=== PATIENT | female | born 1960 | race Caucasian/White ===

== ENCOUNTER 2020-03-22 06:12 | Emergency (ER) | payer SELFPAY ==
[2020-03-22] MEDS ORDERED: Proparacaine 0.5% Opth 15 ML BOT ONE (06:26)
[2020-03-22] MEDS ORDERED: Lidocaine 1% (PF) 30 ML VIAL ONE (06:26)
[2020-03-22] MEDS ORDERED: Budesonide 0.5 MG/2 ML NEB ONE (06:27)
[2020-03-22] MEDS ORDERED: Bupivacaine 0.25% 10 ML VIAL ONE (06:28)
[2020-03-22] MEDS ORDERED: Morphine 10 MG/ML VIAL ONE (06:57)
--- NOTE | 2020-03-22 07:40 | RAD ---
RIGHT WRIST 3 VIEWS: HISTORY: Fall, right wrist pain. FINDINGS/IMPRESSION: There is a mildly angulated fracture involving the distal radial metaphysis. POS: MAZINA
--- NOTE | 2020-03-22 08:56 | RAD ---
RIGHT WRIST 3 VIEWS: HISTORY: Post reduction. COMPARISON: Earlier exam of the same day. FINDINGS: Arthritic changes of the wrist are again identified. Distal radial fracture still shows moderate dinesh hailey angulation on this exam. No associated ulnar fracture is appreciated. IMPRESSION: No significant change from the angulation of the distal radial fracture. POS: C
[2020-03-22] MEDS ORDERED: Ketamine 50 MG/ML (10ML VIAL) ONE (09:15)
[2020-03-22] MEDS ORDERED: Acetaminophen/Codeine 30-300mg Tablet ONE (11:21)
[2020-03-22] MEDS ORDERED: Ibuprofen 200 MG TAB ONE (11:21)
--- NOTE | 2020-03-22 13:32 | RAD ---
RIGHT WRIST TWO VIEWS: 03/22/20 INDICATION: History of right wrist fracture reduction. COMPARISON: Prior exam performed earlier at 8:06 a.m. FINDINGS: There is improved alignment in the dorsally angulated distal radial fracture with intra-articular ext ension. Mild residual dorsal angulation and radial impaction remains. 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 There is healed deformity involving the thumb metacarpal base. IMPRESSION: Interval closed reduction with improved near anatomic alignment involving the intra-articular distal radial fracture. POS: BH
== END 2020-03-22 11:27 | disposition home or self-care (01) ==
LOC: ERS 06:12
DX: S52.571A Other intraarticular fracture of lower end of right radius, initial encounter for closed fracture (principal); J45.909 Unspecified asthma, uncomplicated; I10 Essential (primary) hypertension; F32.9 Major depressive disorder, single episode, unspecified; M19.90 Unspecified osteoarthritis, unspecified site; Z79.899 Other long term (current) drug therapy; Z86.73 Personal history of transient ischemic attack (TIA), and cerebral infarction without residual deficits
CPT/HCPCS: 25605; 96372; 99152; 99153; 99283; J2001; J2270; J7626; S0020

== ENCOUNTER 2020-03-26 06:10 | Outpatient (CLI) | payer OTHER, SELFPAY ==
[2020-03-26 16:46] LABS: #Eosinphils 0.6 thou/uL (0.0-0.7); #Lymphocytes 2.6 thou/uL (1.20-3.40); #Monocytes 0.5 thou/uL (0.11-0.59); #Neutrophils 5.5 thou/uL (1.40-6.50); %Basophils 0.5 % (0.0-1.0); %Lymphocytes 28.1 % (21.0-51.0); %Monocytes 5.3 % (0.0-10.0); %Neutrophils 60.1 % (42.0-75.0); Hemoglobin 12.2 g/dL (12.0-16.0); Mean Corpuscular HGB CONC 31.8 g/dL (32.0-36.0); Mean Corpuscular Volume 94.2 fL (78.0-98.0); Mean Platelet Volume 8.7 fL (7.4-10.4); Platelet Count 272 thou/uL (130-400); RBC Distribution Width 12.6 % (11.5-14.5); Red Blood Cell (RBC) Count 4.07 mill/uL (4.20-5.40); White Blood Cell (WBC) Count 9.2 thou/uL (4.8-10.8)
[2020-03-26 16:48] LABS: INR-International Normal Ratio 0.9; Prothrombin Time 11.9 sec (12.0-14.7)
[2020-03-27 11:21] LABS: SARS-CoV-2 MS2 Positive; SARS-CoV-2 N Gene Negative; SARS-CoV-2 S Gene Negative; SARS-CoV-2 orf1ab Negative
--- NOTE | 2020-03-27 22:10 | EKG ---
Test Reason : Blood Pressure : / mmHG Vent. Rate : 081 BPM Atrial Rate : 081 BPM P-R Int : 170 ms QRS Dur : 086 ms QT Int : 372 ms P-R-T Axes : 063 068 067 degrees QTc Int : 432 ms Normal sinus rhythm Normal ECG No previous ECGs available Confirmed by Pancho GLOVER ([id number]) on 03/27/2020 10:10:19 PM Referred By: SOCO Confirmed By:Pancho GLOVER
== END 2020-03-26 06:11 | disposition home or self-care (01) ==
LOC: LABBT 06:10
PROVIDERS: ATTEND Orthopaedic Surgery
DX: Z01.818 Encounter for other preprocedural examination (principal); Z11.59 Encounter for screening for other viral diseases; S52.551A Other extraarticular fracture of lower end of right radius, initial encounter for closed fracture
CPT/HCPCS: 85025; 85610; 87635; 93005; 93010; U0003

== ENCOUNTER 2020-03-28 10:48 | Day surgery (SDC) | payer OTHER, SELFPAY ==
[2020-03-26 16:15] VITALS: BMI 31.4
[2020-03-28] MEDS ORDERED: Clindamycin/D5W 600 mg/50 ml Premix Bag ONE (11:46)
[2020-03-28] MEDS ORDERED: Midazolam HCl 2 mg/2 ml Vial ONE ×2 (12:34→14:20)
[2020-03-28] MEDS ORDERED: Fentanyl 100 MCG/2 ML VIAL ONE (12:34)
[2020-03-28] MEDS ORDERED: Bupivacaine HCl 0.5%/Epinephrine 1:200,000/PF 30 ml Vial ONE (13:37)
[2020-03-28] MEDS ORDERED: Dexamethasone 20 MG/5 ML VIAL ONE (13:37)
[2020-03-28] MEDS ORDERED: Lidocaine 1% PF 5 ML VIAL ONE (13:37)
[2020-03-28] MEDS ORDERED: Ondansetron PF 4 MG/2 ML Vial ONE (13:37)
[2020-03-28] MEDS ORDERED: PHENYLEPHRINE-NS 100 MCG/ML 10 ML SYRINGE ONE (13:37)
[2020-03-28] MEDS ORDERED: PROPOFOL 200 MG/20 ML VIAL ONE (13:37)
[2020-03-28] MEDS ORDERED: Ketorolac Tromethamine 30 MG/ML VIAL ONE (13:37)
--- NOTE | 2020-03-28 15:35 | RAD ---
Exam: XR Wrist 3 Lt View STANDARD HISTORY: ORIF right wrist COMPARISON: 03/22/2020 FINDINGS: A volar plate and screws now transfix the previously noted comminuted and impacted distal right radia l metaphyseal fracture. There is improvement in alignment of fracture fragments. No hardware complication is seen. Correlation with intraoperative findings is recommended. IMPRESSION: Internal fixation of the intra-articular fracture distal left radius.
--- NOTE | 2020-03-29 09:33 | OP ---
DATE OF PROCEDURE: 03/28/2020 PREOPERATIVE DIAGNOSIS: Right distal radius fracture, extra-articular with metaphyseal comminution. POSTOPERATIVE DIAGNOSIS: Right distal radius fracture, extra-articular with metaphyseal comminution. PROCEDURES PERFORMED: 1. Right open reduction and internal fixation of distal radius fracture. 2. Short-arm splint. BIOPROCESS DEVELOPMENT ENGINEER: Mainor Sykes PA-C ANESTHESIOLOGIST: Dr. Ledesma. ANESTHESIA: The patient received interscalene with an LMA. ESTIMATED BLOOD LOSS: Less than 30 mL. TOURNIQUET TIME: 54 minutes at 250 mmHg. ANTIBIOTICS: Ancef 2 g. IMPLANTS: 6-hole variable angle plate with four 2.4 locking screws and three 2.7 nonlocking screws. COMPLICATIONS: plunge of the drill. INDICATIONS FOR PROCEDURE: Ms. Chand is a 60-year-old female with ground level fall, sustained a dorsal angulation of her wrist with significant comminution. The patient denies osteopenia. I discussed with the patient that given the dorsal angulation, I would be concerned about where the wrist would ultimately come to rest. I discussed risks and benefits of surgery to include pain, scar, bleeding , infection, damage to vital structures, decreased range of motion and strength, continued pain despite surgical intervention, stiffness, loss of life or limb. The patient understood the risks and benefits of the procedure and elected to proceed. DESCRIPTION OF PROCEDURE: Time-out was performed designating the patient's right upper extremity as the operative site based on site, consents, and marking. After time-out, the patient's right upper extremity was prepped and draped in sterile fashion. Tourniquet was brought up and left up for 54 minutes. A volar incision was made over the patient's FCR down through skin. FCR was retracted. The fascia was opened. We took the FPL and the palmaris brevis, which was elevated off. There was some comminution, but large distal segment with dorsal comminution, able to reduce the fracture. Under fluoroscopic guidance, we placed our plate. The drill slipped and the plate slipped and so it was medialized. We had to replace the plate in a more appropriate position proximal distal length in line with the ulna as well as based on radial styloid. I liked the overall position, drilled and placed our screw just slightly proximally, pinned the wrist to help it hold reduction as we liked. We then placed the two center screws. We drilled and measured 20. On radiographs screws sticking out a little bit so we had to actually downsize to 18. The patient's styloid was drilled and placed a 14, and then the patient's portion a 16 was placed and ensured that they were out of the dorsal surface. There was a plunge dorsally, it caught a little bit of the posterior towel. Therefore, we made a small stab incision and came down on top of that drill hole to ensure that there was no debris, washed it and there was not any particular debris noted. We moved back to the wrist, closed our final two 12 mm screws proximally with two sets of screws proximally into the plate bicortical. We took final radiographs showing an improved alignment, volar tilt, ulnar deviation. No screws into the joint. No obvious screws backing out the cortex. We had downsized for two of them. Being happy with the overall alignment and reduction, we washed, we closed the skin with 2-0 and 3-0 nylon, placed soft tissue dressings. The tourniquet was left down at 54 minutes. The patient was placed in a volar splint. The patient will follow up with me in 2 weeks to be transitioned to a Velcro wrist splint. Job ID: [id number] [facility]
== END 2020-03-28 18:00 | disposition home or self-care (01) ==
LOC: SDC 10:48
PROVIDERS: ATTEND Orthopaedic Surgery
PROC: 0PSH04Z Reposition Right Radius with Internal Fixation Device, Open Approach (ICD-10-PCS; principal; 2020-03-28)
PROC: 3E0T3BZ Introduction of Anesthetic Agent into Peripheral Nerves and Plexi, Percutaneous Approach (ICD-10-PCS; principal; 2020-03-28)
DX: S52.551A Other extraarticular fracture of lower end of right radius, initial encounter for closed fracture (principal); G89.18 Other acute postprocedural pain; I10 Essential (primary) hypertension; F32.9 Major depressive disorder, single episode, unspecified; M19.90 Unspecified osteoarthritis, unspecified site; Z79.899 Other long term (current) drug therapy; Z88.0 Allergy status to penicillin; Z91.040 Latex allergy status; W01.0XXA Fall on same level from slipping, tripping and stumbling without subsequent striking against object, initial encounter
CPT/HCPCS: 76000; C1713; J0670; J1100; J1885; J2001; J2250; J2405; J2704; J3010; J3490

== ENCOUNTER 2020-12-23 21:47 | Inpatient (IN) | payer MEDICARE ==
[2020-12-23] MEDS ORDERED: Albuterol Sulfate 1.25 MG/3 ML NEB ONE (21:54)
[2020-12-23] MEDS ORDERED: Albuterol Sulfate 2.5 mg/0.5 ml Neb ONE ×2 (21:55)
--- NOTE | 2020-12-23 22:28 | RAD ---
Chest one view HISTORY: Dyspnea. FINDINGS: Cardiac silhouette is magnified by projection. Pulmonary vasculature is unremarkable. Mediastinum is midline allowing for prominent S-shaped curvature of the thoracic spine. No confluent airspace consolidation or evidence of pneumothorax. Extrinsic artifact projects over the right apex. IMPRESSION : No acute abnormalities are demonstrated.
[2020-12-23] MEDS ORDERED: cefTRIAXone\\ROCEPHIN 1 GM VIAL ONE (22:30)
[2020-12-23 22:34] LABS: Analyzer IN Cardio ER; Base Excess (BEa) -7.4 mEq/L (-2.0 to +3.0); Carboxyhemoglobin (COHb) 0.3 gm% (0.0-3.0); Hemoglobin (Hb) 13.6 g/dL (12.0-16.0); O2 Tension (PaO2), arterial 205.2 mmHg (> 80.0); Potassium - ABG Lab 3.53 mmol/L (3.70-5.30); pH, Arterial 7.42 (7.35-7.45)
[2020-12-23 22:41] LABS: CO2 Tension 23.4 mmHg (35.0-45.0)
[2020-12-23 22:42] LABS: Puncture Site LRA
[2020-12-23] MEDS ORDERED: Fentanyl 100 MCG/2 ML VIAL ONE (22:52)
[2020-12-23 22:57] LABS: Band 3 % (5-11); Hemoglobin 13.1 g/dL (12.0-16.0); Lymphocytes 16 % (21-51); MDiff Complete? YES; Mean Corpuscular HGB CONC 32.3 g/dL (32.0-36.0); Mean Corpuscular Hemoglobin 29.4 pg (27.0-31.0); Mean Corpuscular Volume 91.1 fL (78.0-98.0); Mean Platelet Volume 7.8 fL (7.4-10.4); Monocytes 4 % (0-10); Neutrophil 77 % (42-75); Platelet Count 388 thou/uL (130-400); RBC Distribution Width 12.3 % (11.5-14.5); Red Blood Cell (RBC) Count 4.46 mill/uL (4.20-5.40); White Blood Cell (WBC) Count 21.1 thou/uL (4.8-10.8)
[2020-12-23 23:00] LABS: ALT (SGPT) 14 U/L (8-55); AST (SGOT) 17 U/L (5-34); Alkaline Phosphatase 90 U/L (40-110); Anion Gap 19 mmol/L (10-20); BUN (Urea Nitrogen) 22 mg/dL (9.8-20.1); Bilirubin, Total 0.3 mg/dL (0.2-1.2); Calc. Creatinine Clearance 0 mL/min (70-130); Calcium 8.5 mg/dL (7.8-10.44); Carbon Dioxide 13 mmol/L (23-31); Chloride 114 mmol/L (98-107); Glucose 238 mg/dL (80-115); Potassium 3.9 mmol/L (3.5-5.1); Sodium 142 mmol/L (136-145)
[2020-12-23] MEDS ORDERED: Lorazepam 2 MG/ML VIAL ONE (23:04)
[2020-12-23] MEDS ORDERED: Azithromycin 500 MG VIAL ONE (23:04)
--- NOTE | 2020-12-24 00:59 | PDOC.HHP ---
Hospitalist lul ARTEAGA History of Present Illness: This is a 60-year-old female patient with a history of asthma who presents with worsening cough and shortness of breath. Of note patient had severe asthma for several years with worsening frequency within the past 4 months. Patient recently moved to the area and she has been designated to see a cafe lead today however symptoms started several days ago were becoming worse with the weather. She decided to come to the ED for further evaluation. She activated EMS who started her on Solu-Medrol 125 mg and DuoNeb's. She was sent to an outside ED where she was initially managed and placed on CPAP and transferred here for further management. At presentation her blood pressure was was 1.3 and lactic acid was 4.5. Troponin was 0.1 /86, respiratory 28, pulse 142 and saturation 97%. BiPAP was continued. Initial blood gas was pH of 7.42, bicarb 15, PE code 2 of 250 and PCO2 of 23 on BiPAP. She had a leukocytosis of 21.1, hemoglobin was 13.1 and platelets 388. Bicarb on chemistry was 13, troponin was 0.01 and BNP was less than 10. Chest x-ray showed no acute abnormalities. She was started on azithromycin and Rocephin. Also received albuterol inhalation and lorazepam for agitation. Hospitalist team was consulted to admit Allergies/Adverse Reactions: Allergy/AdvReac Type Severity Reaction Status Date / Time latex Allergy Verified 03/26/20 16:19 Penicillins Allergy Verified 03/26/20 16:19 Home Medications: Medication Instructions Recorded Confirmed Type Citalopram Hydrobromide 40 mg PO HS 03/26/20 03/26/20 History [Citalopram HBr] HYDROcodone Bit/APAP 5/325 [[place] 1 tab PO Q6HR PRN 03/26/20 03/26/20 History 5/325] Ibuprofen 600 mg PO ASDIR PRN 03/26/20 03/26/20 History Losartan Potassium 50 mg PO DAILY 03/26/20 03/26/20 History Montelukast Sodium [Singulair] 10 mg PO HS 03/26/20 03/26/20 History Nebivolol HCl [Bystolic] 20 mg PO DAILY 03/26/20 03/26/20 History Topiramate [Topamax] 200 mg PO HS 03/26/20 03/26/20 History traMADol HCl [Tramadol HCl] 50 mg PO ASDIR PRN 03/26/20 03/26/20 History Past History: PMHx: PSHx: FHx: Social: Hospitalist HPI ROS Constitutional: denies: fever, chills, sweats, weakness, malaise Respiratory: reports: cough, dry, shortness of breath, SOB with excertion. denies: hemoptysis, pleuritic pain Cardiovascular: denies: chest pain, palpitations, orthopnea, paroxysmal noc. dyspnea Gastrointestinal: denies: nausea, vomiting, abdominal pain, diarrhea Genitourinary: denies: dysuria, frequency, incontinence, hematuria Musculoskeletal: denies: neck pain, shoulder pain Neurological: denies: weakness, numbness, incoordination, change in speech All other systems reviewed; all pertinent +/- noted in HPI/Subj Hospitalist Exam General Appearance: awake alert General - other findings: In no acute distress Eye: PERRL, anicteric sclera ENT: normocephalic atraumatic Heart: RRR, no murmur, no gallops, no rubs, normal peripheral pulses Respiratory: tachypneic Respiratory - other findings: Occasional wheezes, decreased air movement bilaterally Gastrointestinal: soft, non-tender, non-distended, normal bowel sounds Extremities: no cyanosis, no clubbing, no edema Neurological: cranial nerve grossly intact, no weakness, no focal deficits Hospitalist Results Result Diagrams: 12/23/20 22:29 12/23/20 22: Lab results: Laboratory Last Values WBC 21.1 thou/uL (4.8-10.8) H 12/23/20: RBC 4.46 mill/uL (4.20-5.40) 12/23/20 22: Hgb 13.1 g/dL (12.0-16.0) 12/23/20: Hct 40.6 % (36.0-47.0) 12/23/20: MCV 91.1 fL (78.0-98.0) 12/23/20 22: MCH 29.4 pg (27.0-31.0) 12/23/20: MCHC 32.3 g/dL (32.0-36.0) 12/23/20 22: RDW 12.3 % (11.5-14.5) 12/23/20: Plt Count 388 thou/uL (130-400) 12/23/20: MPV 7.8 fL (7.4-10.4) 12/23/20: Neutrophils % (Manual) 77 % (42-75) H 12/23/20: Band Neuts % (Manual) 3 % (5-11) L 12/23/20: Lymphocytes % (Manual) 16 % (21-51) L 12/23/20: Monocytes % (Manual) 4 % (0-10) 12/23/20: D-Dimer 0.59 *mcg/mL (0.27-0.43) H 12/23/20: Specimen Type ARTERIAL 12/23/20 22: Puncture Site LRA 12/23/20: Bicarbonate Actual 15.0 mEq/L (22-28) L 12/23/20: ABG pH 7.42 (7.35-7.45) 12/23/20: ABG pCO2 23.4 mmHg (35.0-45.0) L* 12/23/20: ABG pO2 205.2 mmHg (> 80.0) H 12/23/20: ABG O2 Sat (Measured) 99.0 % (94.0-98.0) H 12/23/20: ABG O2 Content 19.2 vol% (18.0-21.0) 12/23/20: ABG Base Excess -7.4 mEq/L (-2.0 to +3.0) L 12/23/20: ABG Hematocrit 40.0 % (36.0-47.0) 12/23/20: ABG Hemoglobin 13.6 g/dL (12.0-16.0) 12/23/20: ABG Oxyhemoglobin 98.0 % (94.0-98.0) 12/23/20: ABG Carboxyhemoglobin 0.3 gm% (0.0-3.0) 12/23/20: ABG Methemoglobin 0.70 gm% (0.04-1.52) 12/23/20 22:30 ABG Deoxyhemoglobin 1.0 % (0.0-2.9) 12/23/20 22:30 Eladio Test POSITIVE 12/23/20 22:30 A-a O2 Gradient 50.750 mmHg (0-20) H 12/23/20 22:30 Sodium 141 mmol/L (135-148) 12/23/20 22:30 Potassium 3.53 mmol/L (3.70-5.30) L 12/23/20 22:30 Chloride 113 mmol/L (98-106) H 12/23/20 22:30 Ionized Calcium 1.20 mmol/L (1.12-1.30) 12/23/20 22:30 Mode of Support BIPAP +10/1312/23/20 22:30 Inspired O2 40 % 12/23/20 22:30 Inspiratory Time 0.90 sec 12/23/20 22:30 Peak Inspir Pressure 12 cmH2O 12/23/20 22:30 Pressure Support 6 cmH2O 12/23/20 22:30 PEEP or CPAP 6.0 cmH2O 12/23/20 22:30 Sodium 142 mmol/L (136-145) 12/23/20 22:29 Potassium 3.9 mmol/L (3.5-5.1) 12/23/20 22:29 Chloride 114 mmol/L (98-107) H 12/23/20 22:29 Carbon Dioxide 13 mmol/L (23-31) L 12/23/20 22:29 Anion Gap 19 mmol/L (10-20) 12/23/20 22:29 BUN 22 mg/dL (9.8-20.1) H 12/23/20 22:29 Creatinine 1.03 mg/dL (0.6-1.1) 12/23/20 22:29 Estimated GFR (MDRD) 54 12/23/20 22:29 Glucose 238 mg/dL (80-115) H 12/23/20 22:29 Lactic Acid 4.5 mmol/L (0.5-2.2) H* 12/23/20 22:29 Calcium 8.5 mg/dL (7.8-10.44) 12/23/20 22:29 Total Bilirubin 0.3 mg/dL (0.2-1.2) 12/23/20 22:29 AST 17 U/L (5-34) 12/23/20: ALT 14 U/L (8-55) 12/23/20: Alkaline Phosphatase 90 U/L (40-110) 12/23/20: Troponin I 0.012 ng/mL (< 0.028) 12/23/20: B-Natriuretic Peptide Less than 10.0 pg/mL (0-100) 12/23/20: Serum Total Protein 7.0 g/dL (5.8-8.1) 12/23/20: Albumin 4.0 g/dL (3.4-4.8) 12/23/20: Globulin 3.0 g/dL (2.4-3.5) 12/23/20 Albumin/Globulin Ratio 1.3 g/dL (1.2-2.2) 12/23/20: Hospitalist H&P A/P Plan: This is a 60-year-old female patient history of asthma with recent worsening symptoms or recurrence presents with an acute asthma exacerbation. Acute hypoxic respiratory failure Secondary to asthma Oxygen therapy as needed Pulmonology consult in a.m. Acute asthma exacerbation Duo nebs, Solu-Medrol Also receiving antibiotics Significant improvement on BiPAPwe will continue Appreciate pulmonology input. Leukocytosis Unclear etiology No sign of infection We will monitor. VT prophylaxisLovenox CODE STATUSfull
[2020-12-24] MEDS ORDERED: Morphine 2 MG/ML VIAL ONE (01:27)
[2020-12-24] MEDS: Morphine 2 MG/ML VIAL SLOW IVP PRN ×3 (01:30→20:58)
[2020-12-24 01:55] LABS: SARS-CoV-2 NAA Rapid Test Not Detected (NotDetected)
[2020-12-24 03:17] LABS: Bilirubin Negative (Negative); Blood, Urine Negative (Negative); Clarity Clear (Clear); Glucose, Urine (Dipstick) 200 mg/dL (Negative); Ketone, Urine Negative (Negative); Leukocyte Negative Leu/uL (Negative); Nitrite Negative (Negative); Protein, Urine (Dipstick) Negative (Neg-Trace); Urobilinogen Normal mg/dL (Less than 2)
[2020-12-24] MEDS ORDERED: Sodium Chloride 0.9% 1,000 ML IV SCH (03:30)
[2020-12-24] MEDS ORDERED: Lorazepam 2 MG/ML VIAL ONE (04:05)
[2020-12-24] MEDS ORDERED: methylPREDNISolone Sod Succ 40 MG VIAL ONE (05:53)
[2020-12-24] MEDS: methylPREDNISolone Sod Succ 40 MG VIAL IVP SCH (05:58)
[2020-12-24 06:18] LABS: Anion Gap 15 mmol/L (10-20); BUN (Urea Nitrogen) 19 mg/dL (9.8-20.1); Calc. Creatinine Clearance 84 mL/min (70-130); Calcium 8.5 mg/dL (7.8-10.44); Carbon Dioxide 15 mmol/L (23-31); Chloride 117 mmol/L (98-107); Glucose 174 mg/dL (80-115); Potassium 4.5 mmol/L (3.5-5.1); Sodium 142 mmol/L (136-145)
[2020-12-24 06:46] VITALS: BMI 32.4
[2020-12-24 07:25] LABS: #Lymphocytes 1.1 thou/uL (1.20-3.40); #Monocytes 0.1 thou/uL (0.11-0.59); #Neutrophils 14.4 thou/uL (1.40-6.50); %Basophils 0.2 % (0.0-1.0); %Eosinophils 0.1 % (0.0-10.0); %Lymphocytes 7.2 % (21.0-51.0); %Monocytes 0.8 % (0.0-10.0); %Neutrophils 91.7 % (42.0-75.0); Hemoglobin 11.4 g/dL (12.0-16.0); Mean Corpuscular Hemoglobin 29.5 pg (27.0-31.0); Mean Corpuscular Volume 92.3 fL (78.0-98.0); Mean Platelet Volume 8.1 fL (7.4-10.4); Platelet Count 269 thou/uL (130-400); RBC Distribution Width 12.1 % (11.5-14.5); Red Blood Cell (RBC) Count 3.88 mill/uL (4.20-5.40); White Blood Cell (WBC) Count 15.7 thou/uL (4.8-10.8)
[2020-12-24] MEDS ORDERED: Ondansetron ODT 4 MG TAB PO PRN (07:27)
[2020-12-24] MEDS ORDERED: Ondansetron PF 4 MG/2 ML Vial IVP PRN (07:27)
[2020-12-24] MEDS: Sodium Chloride 0.9% 1,000 ML IV SCH ×2 (08:49→18:35)
[2020-12-24] MEDS ORDERED: methylPREDNISolone Sod Succ 40 MG VIAL IVP SCH (09:00)
[2020-12-24 09:08] LABS: Lactic Acid 3.4 mmol/L (0.5-2.2)
[2020-12-24] MEDS: Enoxaparin Sodium 40 MG/0.4 ML SYRINGE SC SCH (10:39)
--- NOTE | 2020-12-24 12:33 | CON ---
DATE OF CONSULTATION: SUBJECTIVE: Perla Chand is a very pleasant 60-year-old female. She moved to [place] from [place] recently. She says she has been hospitalized twice at [facility] with breathing issues. She has never seen a food storeroom clerk in the hospital or in the clinic over there. She was followed by in [place] until he retired. I believe it has been a few years since he retired. She presented with extreme shortness of breath, wanted to go to [facility], but did not think she would make it there, so they diverted to [place] in [place]. She is on BiPAP all night. She says she is 100% better, although she is complaining of right-sided chest discomfort when she takes a deep breath. PAST MEDICAL HISTORY: Remarkable for a lifetime of asthma. She says this has been majority of her health issues. FAMILY HISTORY: Negative for lung disease in early age. SOCIAL HISTORY: She is a nonsmoker. She is not a daily drinker. PHYSICAL EXAMINATION: VITAL SIGNS: Her vital signs have been stable. GENERAL: She is in no distress. She is able to talk in complete sentences. She has a very strong and effective cough. HEAD AND NECK: Unremarkable. LUNGS: Clear. HEART: Regular rhythm. S1 and S2 are normal. ABDOMEN: Soft and nontender without masses. EXTREMITIES: Without clubbing, cyanosis, or edema. DIAGNOSTIC STUDIES: Labs and x-rays have been reviewed. IMPRESSION AND PLAN: Status asthmaticus, resolving. She still has a resting tachycardia. I do not feel it would be appropriate to discharge her at this point. She will probably need to be in the hospital for a few more days. Job ID: [id number]
[2020-12-24] MEDS ORDERED: cefTRIAXone\\ROCEPHIN 1 GM in Sodium Chloride 0.9% 100 ML IVPB SCH (22:00)
[2020-12-25] MEDS: Azithromycin 500 MG in Sodium Chloride 0.9% 250 ML 250 ML IVPB SCH ×2 (00:06→23:10)
[2020-12-25] MEDS: methylPREDNISolone Sod Succ 40 MG VIAL IVP SCH (05:35)
[2020-12-25] MEDS: Morphine 2 MG/ML VIAL SLOW IVP PRN ×2 (05:35→09:38)
[2020-12-25] MEDS: Sodium Chloride 0.9% 1,000 ML IV SCH ×2 (06:45→16:58)
--- NOTE | 2020-12-25 09:15 | PRG ---
DATE OF SERVICE: SUBJECTIVE: The patient says she is feeling better. OBJECTIVE: VITAL SIGNS: Oximetry is 100% on room air. She is afebrile. Heart rate is in 80s, blood pressure 140/99. LUNGS: Clear. HEART: Regular rhythm. ABDOMEN: Soft. LABORATORY DATA: There is no new lab today. IMPRESSION: Asthma exacerbation. PLAN: We will take her off IV antimicrobial therapy at this point. She could probably be switched to prednisone. Discharge will completely hinged around whether or not she has power at her house. Has cold weather in her house, likely contributed to this significant asthma exacerbation. Job ID: [id number]
[2020-12-25] MEDS: Enoxaparin Sodium 40 MG/0.4 ML SYRINGE SC SCH (09:31)
[2020-12-25 11:30] LABS: #Eosinphils 0.1 thou/uL (0.0-0.7); #Lymphocytes 1.4 thou/uL (1.20-3.40); #Monocytes 0.2 thou/uL (0.11-0.59); #Neutrophils 9.1 thou/uL (1.40-6.50); %Basophils 0.2 % (0.0-1.0); %Eosinophils 0.8 % (0.0-10.0); %Lymphocytes 13.3 % (21.0-51.0); %Monocytes 1.5 % (0.0-10.0); %Neutrophils 84.2 % (42.0-75.0); Hemoglobin 11.9 g/dL (12.0-16.0); Mean Corpuscular HGB CONC 33.8 g/dL (32.0-36.0); Mean Corpuscular Hemoglobin 31.2 pg (27.0-31.0); Mean Corpuscular Volume 92.3 fL (78.0-98.0); Mean Platelet Volume 7.6 fL (7.4-10.4); Platelet Count 220 thou/uL (130-400); RBC Distribution Width 12.2 % (11.5-14.5); Red Blood Cell (RBC) Count 3.82 mill/uL (4.20-5.40); White Blood Cell (WBC) Count 10.8 thou/uL (4.8-10.8)
[2020-12-25 11:48] LABS: Lactic Acid 3.5 mmol/L (0.5-2.2)
[2020-12-25 11:51] LABS: Anion Gap 15 mmol/L (10-20); BUN (Urea Nitrogen) 18 mg/dL (9.8-20.1); Calc. Creatinine Clearance 89 mL/min (70-130); Calcium 8.8 mg/dL (7.8-10.44); Carbon Dioxide 19 mmol/L (23-31); Chloride 113 mmol/L (98-107); Glucose 160 mg/dL (80-115); Potassium 3.6 mmol/L (3.5-5.1); Sodium 143 mmol/L (136-145)
[2020-12-25] MEDS ORDERED: Benzonatate 100 MG CAP PO PRN (14:12)
[2020-12-25] MEDS ORDERED: HYDROcodone/Chlorphen Polis 5 ML UDCUP PO PRN (14:12)
[2020-12-25] MEDS: guaiFENesin/Codeine 200 mg/20 mg 10 ml Cup PO PRN ×2 (14:57→21:23)
[2020-12-25] MEDS: HYDROcodone/Acetaminophen 10/325 mg Tablet PO PRN ×2 (14:57→21:23)
[2020-12-25] MEDS: Calcium Carbonate 500 MG ChewTAB PO PRN (14:57)
--- NOTE | 2020-12-25 18:15 | PDOC.HOSPP ---
- Subjective Encounter Date: 12/25/20 Subjective: Continues to have significant cough and hoarseness. - Objective Vital Signs & Weight: Vital Signs (12 hours) Temp Pulse Resp BP BP Pulse Ox 12/25/20 15:03 109 H 20 142/86 H 100 12/25/20 14:47 101 H 16 95 12/25/20 12:00 98 F 119 H 20 130/84 100 12/25/20 10:31 108 H 14 100 12/25/20 10:30 98.0 F 118 H 20 150/87 H 99 12/25/20 08:15 100 12/25/20 08:14 86 18 100 12/25/20 07:00 97.2 F L 85 20 141/99 H 100 Weight Weight 177 lb 6.4 oz I&O: 12/24/20 12/25/20 12/26/20 06:59 06:59 06:59 Intake Total 2207 Output Total 500 Balance -500 2207 Result Diagrams: 12/25/20 11:18 12/25/20 11:18 Hospitalist ROS - Medication Medications: Active Medications Generic Name Dose Route Start Last Admin Trade Name Freq PRN Reason Stop Dose Admin Hydrocodone Bitart/Acetaminophen 1 tab 12/25/20 14:31 12/25/20 14:57 Hydrocodone/Acetaminophen 10/325 Mg Tablet PO 1 tab Q4H PRN Administration Moderate to Severe Pain (6-10) Albuterol/Ipratropium 3 ml 12/24/20 06:30 12/25/20 14:47 Ipratropium/Albuterol Sulfate 3 Ml Neb NEB 3 ml [id number] LITTLE Administration Calcium Carbonate 1,000 mg 12/25/20 14:32 12/25/20 14:57 Calcium Carbonate 500 Mg Chewtab PO 1,000 mg Q4H PRN Administration Heartburn or Indigestion Enoxaparin Sodium 40 mg 12/24/20 09:00 12/25/20 09:31 Enoxaparin Sodium 40 Mg/0.4 Ml Syringe SC 40 mg 0900 LITTLE Administration Guaifenesin/Codeine Phosphate 10 ml 12/25/20 14:31 12/25/20 14:57 Guaifenesin/Codeine 200 Mg/20 Mg 10 Ml Cup PO 10 ml Q6H PRN Administration Cough Azithromycin 500 mg/ Sodium 250 mls @ 250 mls/hr 12/24/20 23:00 12/25/20 00:06 Chloride IVPB 250 mls 2300 LITTLE Administration Sodium Chloride 1,000 mls @ 100 mls/hr 12/24/20 06:45 12/25/20 16:58 Normal Saline 0.9% IV 1,000 mls .Q10H LITTLE Administration Methylprednisolone Sodium Succinate 40 mg 12/24/20 05:00 12/25/20 05:35 Methylprednisolone Sod Succ 40 Mg Vial IVP 40 mg 0500 LITTLE Administration Morphine Sulfate 2 mg 12/24/20 00:54 12/25/20 09:38 Morphine 2 Mg/Ml Vial SLOW IVP 12/25/20 23:59 2 mg Q4H PRN Administration Pain Sodium Chloride 10 ml 12/24/20 09:00 12/25/20 09:31 Flush - Normal Saline 10 Ml Syringe IVF 10 ml Q12HR LITTLE Administration Hospitalist Exam Vitals: Vital Signs (12 hours) Temp Pulse Resp BP BP Pulse Ox 12/25/20 15:03 109 H 20 142/86 H 100 12/25/20 14:47 101 H 16 95 12/25/20 12:00 98 F 119 H 20 130/84 100 12/25/20 10:31 108 H 14 100 12/25/20 10:30 98.0 F 118 H 20 150/87 H 99 12/25/20 08:15 100 12/25/20 08:14 86 18 100 12/25/20 07:00 97.2 F L 85 20 141/99 H 100 Weight Weight 177 lb 6.4 oz General Appearance: NAD, awake alert General - other findings: Obese. Hoarseness of voice. Frequent cough. Heart: RRR, no murmur, no gallops, no rubs, normal peripheral pulses Respiratory: no rales, no ronchi, wheezes (Modest. Modest air exchange.) Gastrointestinal: soft, non-tender, non-distended, normal bowel sounds, no palpable masses, no hepatomegaly, no splenomegaly, no bruit Extremities: no cyanosis, no clubbing, no edema Skin: normal turgor Neurological: no focal deficits Musculoskeletal: normal tone, normal strength Psychiatric: normal affect, normal behavior, A&O x 3 Hosp A/P (1) Asthma exacerbation Code(s): J45.901 - UNSPECIFIED ASTHMA WITH (ACUTE) EXACERBATION Status: Acute (2) Acute respiratory failure with hypoxia Code(s): J96.01 - ACUTE RESPIRATORY FAILURE WITH HYPOXIA Status: Acute (3) HTN (hypertension) Code(s): I10 - ESSENTIAL (PRIMARY) HYPERTENSION Status: Acute (4) Lactic acidosis Code(s): E87.2 - ACIDOSIS Status: Acute - Plan Asthma exacerbation: Continue with steroids and nebulizers. Rearranged her cough suppression regimen today to be more consistent with what typically worked for her in the past. Antibiotics DC'd by pulmonology. Anticipate transition to oral steroids tomorrow. Acute hypoxia: Patient is currently satting well on room air but still has some resting tachycardia. This may be secondary to the stimulation of the nebulizer treatments. Leukocytosis: Appears benign with no evidence of infection. Persistent lactic acidosis: Likely due to her initial presentation with some increased work of breathing and hypoxia. Continue to monitor. DVT prophylaxis: Lovenox. PUD prophylaxis: Given the need for steroids we will continue PPI.
[2020-12-25] MEDS ORDERED: guaiFENesin/DM ER PO SCH (21:00)
[2020-12-26] MEDS ORDERED: Acetaminophen 325 MG TAB PO PRN (03:54)
[2020-12-26] MEDS: Sodium Chloride 0.9% 1,000 ML IV SCH ×3 (04:09→17:17)
[2020-12-26] MEDS: HYDROcodone/Acetaminophen 10/325 mg Tablet PO PRN ×4 (04:10→21:00)
[2020-12-26] MEDS: methylPREDNISolone Sod Succ 40 MG VIAL IVP SCH (05:25)
[2020-12-26] MEDS: Enoxaparin Sodium 40 MG/0.4 ML SYRINGE SC SCH (08:35)
[2020-12-26 09:08] LABS: Lactic Acid 2.3 mmol/L (0.5-2.2)
[2020-12-26 09:12] LABS: Anion Gap 13 mmol/L (10-20); BUN (Urea Nitrogen) 12 mg/dL (9.8-20.1); Calc. Creatinine Clearance 96 mL/min (70-130); Calcium 8.9 mg/dL (7.8-10.44); Carbon Dioxide 19 mmol/L (23-31); Chloride 111 mmol/L (98-107); Glucose 113 mg/dL (80-115); Potassium 3.2 mmol/L (3.5-5.1); Sodium 140 mmol/L (136-145)
[2020-12-26] MEDS ORDERED: Ondansetron ODT 4 MG TAB PO PRN (10:09)
[2020-12-26] MEDS: Morphine 2 MG/ML VIAL SLOW IVP PRN ×2 (11:41→16:43)
--- NOTE | 2020-12-26 12:11 | PRG ---
DATE OF SERVICE: 12/26/2020 SUBJECTIVE: Perla Chand is complaining of migraine headache. OBJECTIVE: VITAL SIGNS: Heart rate is 88, room air. LUNGS: Completely clear. IMPRESSION: Asthma exacerbation, more or less resolved. I have written a prescription for prednisone. I have written a prescription for a new nebulizer. She can follow up with me in 4 to 6 weeks after hospitalization. She will go back to [facility] once a day. She will take her budesonide twice a day as a preventative. She will continue with her Singulair and her p.r.n. albuterol. Job ID: [id number]
[2020-12-26] MEDS: guaiFENesin/Codeine 200 mg/20 mg 10 ml Cup PO PRN (12:12)
[2020-12-26] MEDS: SUMAtriptan Succinate 50 MG TAB PO PRN (18:04)
[2020-12-26] MEDS: Mometasone 100 MCG/Formoterol 5 MCG 120 PUFF INHALER INH SCH (18:25)
--- NOTE | 2020-12-26 19:50 | PDOC.HOSPP ---
- Subjective Encounter Date: 12/26/20 Subjective: Today the patient had significant migraine headache. She has a history of these that had improved with menopause. She has some associated nausea. - Objective Vital Signs & Weight: Vital Signs (12 hours) Temp Pulse Resp BP Pulse Ox 12/26/20 18:24 108 H 16 100 12/26/20 15:00 97.7 F 83 16 142/92 H 100 12/26/20 14:30 98 18 93 L 12/26/20 11:08 88 16 99 12/26/20 11:00 97.6 F 93 20 141/85 H 100 12/26/20 08:52 100 12/26/20 08:46 89 18 99 Weight Weight 177 lb 6.4 oz I&O: 12/25/20 12/26/20 12/27/20 06:59 06:59 06:59 Intake Total 2207 Output Total 500 Balance -500 2207 Result Diagrams: 12/25/20 11:18 12/26/20 08:45 Hospitalist ROS - Medication Medications: Active Medications Generic Name Dose Route Start Last Admin Trade Name Freq PRN Reason Stop Dose Admin Hydrocodone Bitart/Acetaminophen 1 tab 12/25/20 14:31 12/26/20 14:14 Hydrocodone/Acetaminophen 10/325 Mg Tablet PO 1 tab Q4H PRN Administration Moderate to Severe Pain (6-10) Albuterol/Ipratropium 3 ml 12/24/20 06:30 12/26/20 18:24 Ipratropium/Albuterol Sulfate 3 Ml Neb NEB 3 ml [id number] LITTLE Administration Calcium Carbonate 1,000 mg 12/25/20 14:32 12/25/20 14:57 Calcium Carbonate 500 Mg Chewtab PO 1,000 mg Q4H PRN Administration Heartburn or Indigestion Enoxaparin Sodium 40 mg 12/24/20 09:00 12/26/20 08:35 Enoxaparin Sodium 40 Mg/0.4 Ml Syringe SC 40 mg 0900 LITTLE Administration Guaifenesin/Codeine Phosphate 10 ml 12/25/20 14:31 12/26/20 12:12 Guaifenesin/Codeine 200 Mg/20 Mg 10 Ml Cup PO 10 ml Q6H PRN Administration Cough Azithromycin 500 mg/ Sodium 250 mls @ 250 mls/hr 12/24/20 23:00 12/25/20 23:10 Chloride IVPB 250 mls 2300 LITTLE Administration Sodium Chloride 1,000 mls @ 50 mls/hr 12/26/20 10:39 12/26/20 17:17 Normal Saline 0.9% IV 1,000 mls .Q20H LITTLE Administration Methylprednisolone Sodium Succinate 40 mg 12/24/20 05:00 12/26/20 05:25 Methylprednisolone Sod Succ 40 Mg Vial IVP 40 mg 0500 LITTLE Administration Mometasone Furoate/Formoterol Fumar 2 puff 12/26/20 18:30 12/26/20 18:25 Mometasone 100 Mcg/Formoterol 5 Mcg 120 Puff Inhaler INH 2 puff BID-RT LITTLE Administration Morphine Sulfate 2 mg 12/26/20 10:38 12/26/20 16:43 Morphine 2 Mg/Ml Vial SLOW IVP 2 mg Q4H PRN Administration Moderate to Severe Pain (6-10) Ondansetron HCl 4 mg 12/26/20 10:09 12/26/20 10:34 Ondansetron Odt 4 Mg Tab PO 4 mg Q6H PRN Administration Nausea/Vomiting Pantoprazole Sodium 40 mg 12/26/20 09:00 12/26/20 08:35 Pantoprazole 40 Mg Tab PO 40 mg DAILY LITTLE Administration Sodium Chloride 10 ml 12/24/20 09:00 12/26/20 09:12 Flush - Normal Saline 10 Ml Syringe IVF Not Given Q12HR LITTLE Sumatriptan Succinate 50 mg 12/26/20 16:40 12/26/20 18:04 Sumatriptan Succinate 50 Mg Tab PO 50 mg PRN PRN Administration Migraine Headache Hospitalist Exam Vitals: Vital Signs (12 hours) Temp Pulse Resp BP Pulse Ox 12/26/20 18:24 108 H 16 100 12/26/20 15:00 97.7 F 83 16 142/92 H 100 12/26/20 14:30 98 18 93 L 12/26/20 11:08 88 16 99 12/26/20 11:00 97.6 F 93 20 141/85 H 100 12/26/20 08:52 100 12/26/20 08:46 89 18 99 Weight Weight 177 lb 6.4 oz General Appearance: NAD, awake alert, ill appearing Heart: RRR, no murmur, no gallops, no rubs, normal peripheral pulses Respiratory: CTAB, no wheezes, no rales Gastrointestinal: soft, non-tender, non-distended, normal bowel sounds, no palp able masses, no hepatomegaly, no splenomegaly, no bruit Extremities: no cyanosis, no clubbing, no edema Skin: normal turgor Musculoskeletal: normal tone, normal strength Psychiatric: normal affect, normal behavior, A&O x 3 Hosp A/P (1) Asthma exacerbation Code(s): J45.901 - UNSPECIFIED ASTHMA WITH (ACUTE) EXACERBATION Status: Acute (2) Acute respiratory failure with hypoxia Code(s): J96.01 - ACUTE RESPIRATORY FAILURE WITH HYPOXIA Status: Acute (3) HTN (hypertension) Code(s): I10 - ESSENTIAL (PRIMARY) HYPERTENSION Status: Acute (4) Lactic acidosis Code(s): E87.2 - ACIDOSIS Status: Acute (5) Migraine headache Code(s): G43.909 - MIGRAINE, UNSP, NOT INTRACTABLE, WITHOUT STATUS MIGRAINOSUS Status: Acute (6) Nausea and vomiting Code(s): R11.2 - NAUSEA WITH VOMITING, UNSPECIFIED Status: Acute - Plan Asthma exacerbation: Continue with steroids and nebulizers. Rearranged her cough suppression regimen today to be more consistent with what typically worked for her in the past. Antibiotics DC'd by pulmonology. Transition to p.o. steroids on 12/26/2020. Symptoms and findings significantly improved. Acute hypoxia: Patient initially was satting relatively well on room air but will had some b aseline tachycardia. This eventually improved. Leukocytosis: Appears benign with no evidence of infection. Persistent lactic acidosis: Likely due to her initial presentation with some increased work of breathing and hypoxia. Showed significant improvement by 12/26/2020. Migraine headache with nausea and vomiting: Started on 12/26/2020. Zofran as needed. Sumatriptan DVT prophylaxis: Lovenox. PUD prophylaxis: Given the need for steroids we will continue PPI.
[2020-12-26] MEDS ORDERED: Montelukast Sodium 10 mg Tablet PO SCH (21:00)
[2020-12-26] MEDS ORDERED: Topiramate 100 MG TAB PO SCH (21:00)
[2020-12-26] MEDS: Calcium Carbonate 500 MG ChewTAB PO PRN (23:45)
[2020-12-27] MEDS ORDERED: Ketorolac Tromethamine 30 MG/ML VIAL IVP SCH (03:15)
[2020-12-27] MEDS: Morphine 2 MG/ML VIAL SLOW IVP PRN (03:19)
[2020-12-27] MEDS: Mometasone 100 MCG/Formoterol 5 MCG 120 PUFF INHALER INH SCH (06:51)
[2020-12-27 07:58] VITALS: BP 150/80; TEMP 98.3
[2020-12-27] MEDS ORDERED: predniSONE 20 MG TAB PO SCH (08:00)
[2020-12-27] MEDS ORDERED: Losartan 25 MG TAB PO SCH (09:00)
[2020-12-27] MEDS ORDERED: Bupropion 150 MG SR TAB PO SCH (09:00)
[2020-12-27] MEDS: Enoxaparin Sodium 40 MG/0.4 ML SYRINGE SC SCH (09:20)
[2020-12-27] MEDS: HYDROcodone/Acetaminophen 10/325 mg Tablet PO PRN (09:21)
[2020-12-27] MEDS: SUMAtriptan Succinate 50 MG TAB PO PRN (11:34)
--- NOTE | 2020-12-27 18:30 | PDOC.DS.DS ---
Provider Date of Admission: 12/23/20 23:42 Date of Discharge: 12/27/20 Admitting Provider: Trav Segal MD Consultations: Pulmonary Primary Care Physician: OUT OF TOWN Course Hospital Course: She is a 60-year-old female with a history of significant asthma with recurrent exacerbations. She presented to the hospital via the ER with hoarseness, cough, worsening shortness of breath. Asthma exacerbation: Patient was admitted and started on IV steroids and aggressive nebulizers. She was started on cough suppressants and these were titrated in order to get appropriate affect. She was initially started on antibiotics empirically. She was seen in consultation by pulmonology. Subsequently she was taken off of antibiotics and transition to p.o. steroids. Her symptoms continue to improve and her lung exam cleared significantly. Acute hypoxia: Patient initially was satting relatively well on room air but will had some baseline tachycardia. This eventually improved. Leukocytosis: Appears benign with no evidence of infection. Persistent lactic acidosis: Likely due to her initial presentation with some increased work of breathing and hypoxia. Showed significant improvement by 12/26/2020. Migraine headache with nausea and vomiting: Started on 12/26/2020. Zofran as needed. Sumatriptan Lab Results: 12/25/20 11:18 12/26/20 08:45 Abnormal Lab Results - Last 48 hrs 12/26/20 08:45: Potassium 3.2 L, Chloride 111 H, Carbon Dioxide 19 L 12/26/20 08:45: Lactic Acid 2.3 H Microbiology - Entire Visit 12/24/20 02:49 Urine voided Urine Culture - Final NO GROWTH AT 48 HOURS 12/23/20 22:29 Venous blood - Right Hand Blood Culture - Preliminary NO GROWTH AT 48 HOURS 12/23/20 22:29 Venous blood - Left Hand Blood Culture - Preliminary NO GROWTH AT 48 HOURS Vitals: Vital Signs (12 hours) Temp Pulse Resp BP Pulse Ox 12/27/20 10:14 84 16 97 12/27/20 07:58 98.3 F 96 16 150/80 H 99 Weight Weight 177 lb 6.4 oz Physical Exam: The patient was seen and examined on the day of discharge. Problem (1) Asthma exacerbation Code(s): J45.901 - UNSPECIFIED ASTHMA WITH (ACUTE) EXACERBATION Status: Acute (2) Acute respiratory failure with hypoxia Code(s): J96.01 - ACUTE RESPIRATORY FAILURE WITH HYPOXIA Status: Acute (3) HTN (hypertension) Code(s): I10 - ESSENTIAL (PRIMARY) HYPERTENSION Status: Acute (4) Lactic acidosis Code(s): E87.2 - ACIDOSIS Status: Acute (5) Migraine headache Code(s): G43.909 - MIGRAINE, UNSP, NOT INTRACTABLE, WITHOUT STATUS MIGRAINOSUS Status: Acute (6) Nausea and vomiting Code(s): R11.2 - NAUSEA WITH VOMITING, UNSPECIFIED Status: Acute Plan Prescriptions: Ipratropium/Albuterol Sulfate [DuoNeb] 3 ml NEB Q4H PRN #30 neb PRN Reason: Sob &/Or Wheezing predniSONE 20 mg PO QAM-WM #20 tab Home Medications: Medication Instructions Recorded Confirmed Type Ibuprofen 600 mg PO ASDIR PRN 03/26/20 12/24/20 History Losartan Potassium 50 mg PO DAILY 03/26/20 12/24/20 History Montelukast Sodium [Singulair] 10 mg PO HS 03/26/20 12/24/20 History Topiramate [Topamax] 200 mg PO HS 03/26/20 12/24/20 History BuPROPion SR [Wellbutrin SR] 150 mg PO DAILY 12/24/20 12/24/20 History Fluticasone/Vilanterol [Breo 1 inh INH DAILY 12/24/20 12/25/20 History Ellipta] Ipratropium/Albuterol Sulfate 3 ml NEB Q4H PRN #30 neb 12/27/20 Rx [DuoNeb] Pantoprazole [Protonix] 40 mg PO DAILY tab 12/27/20 Rx predniSONE 20 mg PO QAM-WM #20 tab 12/27/20 Rx Allergies: latex Allergy (Verified 12/24/20 07:36) Penicillins Allergy (Verified 12/24/20 07:36) Activity:: Activity as Tolerated Nourishment:: No Restrictions Referrals: [facility],OUT OF [Primary Care Provider] - 7 Days You Avila MD [Active] - 3-4 Weeks Disposition: HOME Quality CORE MEASURES:: N/A
--- NOTE | 2020-12-28 17:34 | EKG ---
Test Reason : TACHYCARDIA Blood Pressure : / mmHG Vent. Rate : 149 BPM Atrial Rate : 149 BPM P-R Int : 126 ms QRS Dur : 078 ms QT Int : 342 ms P-R-T Axes : 058 047 058 degrees QTc Int : 538 ms Sinus tachycardia Nonspecific ST abnormality Abnormal ECG Confirmed by JORGE SAGASTUME, KIRT ([id number]), health editor ABNER LLAMAS ([id number]) on 12/28/2020 5:33:37 PM Referred By: Confirmed By:KIRT PATEL MD
== END 2020-12-27 12:14 | disposition home or self-care (01) | DRG 189 ==
LOC: ERS 21:47 → ERHOLD 23:42 → 2SE 12-24 06:34
PROVIDERS: ADMIT Student in an Organized Health Care Education/Training Program; ATTEND Internal Medicine
DX: J96.01 Acute respiratory failure with hypoxia (principal); J45.901 Unspecified asthma with (acute) exacerbation; E87.2 Acidosis; J44.1 Chronic obstructive pulmonary disease with (acute) exacerbation; Z20.822 Contact with and (suspected) exposure to COVID-19; D72.829 Elevated white blood cell count, unspecified; G43.909 Migraine, unspecified, not intractable, without status migrainosus; Z96.653 Presence of artificial knee joint, bilateral; F32.9 Major depressive disorder, single episode, unspecified; Z88.0 Allergy status to penicillin; Z91.040 Latex allergy status; Z90.49 Acquired absence of other specified parts of digestive tract
CPT/HCPCS: 0240U; 36415; 36600; 71045; 80048; 80053; 81003; 82805; 83605; 83880; 84484; 85025; 85379; 87040; 87086; 90471; 90732; 93005; 94640; 94660; 96365; 96375; 96376; G0009; J0456; J0696; J1650; J1885; J2060; J2270; J2920; J3010; J3490; J7050; J7512; J7611; J7620; Q0162

== ENCOUNTER 2021-01-15 11:35 | Outpatient (CLI) | payer MEDICARE | END 2021-01-15 11:36 | disposition home or self-care (01) | LOC: BICRAD 11:35 | PROVIDERS: ATTEND Internal Medicine Critical Care Medicine | DX: R06.00 Dyspnea, unspecified (principal) | CPT/HCPCS: 71046 ==

== ENCOUNTER 2021-07-23 09:57 | Outpatient (CLI) | payer MEDICARE | END 2021-07-23 09:58 | disposition home or self-care (01) | LOC: BICRAD 09:57 | PROVIDERS: ATTEND Internal Medicine Critical Care Medicine | DX: R06.00 Dyspnea, unspecified (principal) | CPT/HCPCS: 71046 ==

== ENCOUNTER 2021-11-19 09:22 | Outpatient (CLI) | payer MEDICARE | END 2021-11-19 09:23 | disposition home or self-care (01) | LOC: RAD 09:22 | PROVIDERS: ATTEND Internal Medicine Critical Care Medicine | DX: R06.00 Dyspnea, unspecified (principal) | CPT/HCPCS: 71046 ==

== ENCOUNTER 2022-06-04 11:49 | Outpatient (CLI) | payer MEDICARE | END 2022-06-04 11:50 | disposition home or self-care (01) | LOC: RAD 11:49 | PROVIDERS: ATTEND Internal Medicine Critical Care Medicine | DX: R06.00 Dyspnea, unspecified (principal) | CPT/HCPCS: 71046 ==

== ENCOUNTER 2022-07-10 11:51 | Outpatient (CLI) | payer MEDICARE | END 2022-07-10 11:52 | disposition home or self-care (01) | LOC: BICRAD 11:51 | PROVIDERS: ATTEND Internal Medicine | DX: M79.672 Pain in left foot (principal); M79.5 Residual foreign body in soft tissue ==